=== PATIENT | male | born 1980 | race Asian ===

== ENCOUNTER 2018-01-12 19:47 | Inpatient (IN) | payer MEDICAID ==
[~2018-01-12] VITALS: Ht 167.6 cm; Wt 75.8 kg
[2018-01-12 19:51] VITALS: BP 124/77
--- NOTE | 2018-01-12 19:55 | NUR ---
TO BED # 7 AMBULATORY REPORT GIVEN TO IRVING MAIER
--- NOTE | 2018-01-12 20:03 | NUR ---
PATIENT PRESENTS TO ED WITH FEVER X 1 DAY, ABSCESS TO RIGHT CHEEK X 4 DAYS. PT STATES HE WAS SEEN FOR ABSCESS AT PCP, GIVEN BACTRIM DS AND MOTRIN FOR TX . PT ALSO STATES HE IS HIV+, HAS BEEN OFF HIV MEDICATIONS X 1 MONTH, STATING HE WAS ADDICTED AND SINCE BEEN TRYING TO BE CLEAN. COOLING MEASURES STARTED, PT CHANGED INTO HOSPITAL GOWN. ER MD DR RUIZ MADE AWARE. PT DENIES N/V/D; SKIN IS PINK/WARM/DRY; AAOX4 WITH EVEN AND STEADY GAIT; LUNGS CLEAR BL; HR EVEN AND REGULAR; PT DENIES ANY FEVER, CP, SOB, OR COUGH AT THIS TIME; PATIENT STATES PAIN OF 7/10 AT THIS TIME; VSS; PATIENT POSITIONED FOR COMFORT; HOB ELEVATED; BEDRAILS UP X2; BED DOWN. ER MD MADE AWARE OF PT STATUS.
--- NOTE | 2018-01-12 20:59 | NUR ---
Patient being evaluated by physician at bedside.
[2018-01-12] MEDS ORDERED: KETOROLAC 15 MG/ML VIAL IVP ONE (21:05)
[2018-01-12] MEDS ORDERED: NACL 0.9% 1,000 ML IV ONE (21:05)
[2018-01-12] MEDS ORDERED: VANCOMYCIN PER PHARMACY MC PRN ×2 (21:05→23:55)
[2018-01-12] MEDS ORDERED: ONDANSETRON 4 MG/2 ML VIAL IVP ONE (21:05)
[2018-01-12] MEDS ORDERED: VANCOMYCIN 1GM/DEXT 5% PREMIX 200 ML IV ONE (21:05)
[2018-01-12] MEDS ORDERED: VANCOMYCIN 1,000 MG VIAL ONE (21:17)
[2018-01-12] MEDS ORDERED: IBUPROFEN 800 MG TAB PO ONE (21:25)
[2018-01-12 21:43] LABS: BASOPHILS % (AUTO) 0.2 % (0.0-2.0); EOSINOPHILS # (AUTO) 0.2 K/uL (0-0.4); EOSINOPHILS % (AUTO) 1.4 % (0.0-4.0); HEMATOCRIT 40.3 % (36-52); HEMOGLOBIN 13.6 g/dL (12.0-18.0); LYMPHOCYTES # (AUTO) 1.1 K/uL (2.0-11.5); MEAN CORPUSCULAR HEMOGLOBIN 30 pg (27-31); MEAN CORPUSCULAR HGB CONC 34 g/dL (33-37); MONOCYTES # (AUTO) 0.9 K/uL (0.8-1.0); MONOCYTES % (AUTO) 7.5 % (1.7-9.3); NEUTROPHILS # (AUTO) 10.3 K/uL (1.8-7.7); NEUTROPHILS % (AUTO) 81.9 % (42.2-75.2); PLATELET COUNT (AUTO) 249 K/uL (140-450); RED BLOOD CELL COUNT(AUTO) 4.53 MIL/uL (4.20-6.10); RED CELL DISTRIBUTION WIDTH 13.3 % (11.6-13.7); WHITE BLOOD COUNT (AUTO) 12.6 K/uL (4.8-10.8)
[2018-01-12 21:57] LABS: ANION GAP 12.5 (8-16); CARBON DIOXIDE 24.7 mmol/L (21-32); POTASSIUM 4.2 mmol/L (3.5-5.1)
[2018-01-12 22:01] LABS: PROTHROMBIN TIME 9.1 secs (10.8-13.4)
[2018-01-12 22:03] LABS: ALBUMIN 3.1 g/dL (3.4-5.0); TOTAL BILIRUBIN 0.5 mg/dL (0.0-1.0)
[2018-01-12] MEDS ORDERED: HYDROcodone/APAP 5/325 MG 1 TAB TAB PO PRN (23:50)
[2018-01-12] MEDS ORDERED: ONDANSETRON 4 MG/2 ML VIAL IVP PRN (23:50)
[2018-01-12] MEDS ORDERED: MORPHINE SULFATE 4 MG/ML SYR IVP PRN (23:50)
[2018-01-13 00:25] VITALS: BP 113/65
--- NOTE | 2018-01-13 00:25 | NUR ---
PT ARRIVED ON UNIT WITH ER NURSE VIA WHEELCHAIR. PT IN STABLE CONDITION. IV ACCESS IN R AC 20G WITH NS AT 50ML/HR. IV IS PATENT AND INTACT. PT IS A/O X4. PT ON RA. PT HAS R BUTTOCK ABSCESS. PT HAS NO C/O PAIN AT THIS TIME. BED LOCKED, LOWEST POSITION WITH SIDE RAILS UP X2. BOARD UPDATED. ORIENTATED PT TO ROOM, BATHROOM AND CALL LIGHT USE. WILL BEGIN ADMISSION. WILL CONTINUE TO MONITOR PT.
--- NOTE | 2018-01-13 00:28 | NUR ---
Patient will be admitted to [facility]. Will go to room 105A. Belongings list completed. Report to ZOYA MAIER .
--- NOTE | 2018-01-13 01:40 | NUR ---
PICTURES TAKEN OF PT R BUTTOCK ABSCESS. PICTURES IN CHART. PT HAS NO C/O OF PAIN AT THIS TIME. WILL CONTINUE TO MONITOR.
--- NOTE | 2018-01-13 03:30 | NUR ---
PT IS SLEEPING IN BED. NO S/SX OF DISTRESS. WILL CONTINUE TO MONITOR.
[2018-01-13] MEDS: ACETAMINOPHEN 325 MG TAB PO PRN ×4 (04:37→20:22)
--- NOTE | 2018-01-13 04:37 | NUR ---
PT WOKE UP C/O PAIN. PAIN MEDICATION ADMINISTERED. PT TOLERATED WELL. WILL CONTINUE TO MONITOR.
[2018-01-13 06:50] LABS: ANION GAP 12.3 (8-16); CARBON DIOXIDE 25.7 mmol/L (21-32); CREATININE 1.1 mg/dL (0.7-1.3)
--- NOTE | 2018-01-13 07:00 | NUR ---
ENDORSED PT TO DAY SHIFT NURSE AT BEDSIDE. PT IN STABLE CONDITION.
--- NOTE | 2018-01-13 07:01 | NUR ---
RECEIVED REPORT FROM CAMP TENDER NURSE. PATIENT LYING DOWN IN BED SLEEPING, AROUSABLE BY VOICE. NO DISTRESS NOTED. REPORTS HAVING MILD PAIN ON RIGHT BUTTOCK ABSCESS THAT IS WEEPING, LIGHT GAUZE DRESSING PLACED ON ABSCESS. WILL MEDICATE WITH TYLENOL PER ORDERS. AAOX4, CALM, COOPERATIVE, SKIN COLOR APPROPRIATE TO ETHNICITY, WARM TO TOUCH. ABDOMEN SOFT, NON-DISTENDED. LUNGS CTA ON ALL LOBES. IV SITE INTACT, PATENT, ON IVF PER MD ORDERS. REVIEWED PLAN OF CARE WITH PATIENT. PATIENT VERBALIZED UNDERSTANDING. SAFETY MEASURES IN PLACE, CALL LIGHT WITHIN REACH. WILL CONTINUE TO MONITOR.
[2018-01-13 07:11] LABS: BASOPHILS % (AUTO) 0.3 % (0.0-2.0); EOSINOPHILS % (AUTO) 1.9 % (0.0-4.0); HEMOGLOBIN 13.4 g/dL (12.0-18.0); LYMPHOCYTES % (AUTO) 11.6 % (20.5-51.1); MEAN CORPUSCULAR HEMOGLOBIN 30 pg (27-31); MEAN CORPUSCULAR HGB CONC 33 g/dL (33-37); MEAN CORPUSCULAR VOLUME 89.6 fL (80-94); NEUTROPHILS # (AUTO) 8.8 K/uL (1.8-7.7); NEUTROPHILS % (AUTO) 77.2 % (42.2-75.2); PLATELET COUNT (AUTO) 253 K/uL (140-450); RED BLOOD CELL COUNT(AUTO) 4.46 MIL/uL (4.20-6.10); RED CELL DISTRIBUTION WIDTH 12.6 % (11.6-13.7); WHITE BLOOD COUNT (AUTO) 11.3 K/uL (4.8-10.8)
[2018-01-13 07:12] LABS: EOSINOPHILS # (AUTO) 0.2 K/uL (0-0.4); LYMPHOCYTES # (AUTO) 1.3 K/uL (2.0-11.5)
[2018-01-13 08:00] VITALS: BP 91/70
--- NOTE | 2018-01-13 08:57 | NUR ---
PATIENT LYING IN BED PLAYING ON HIS PHONE. NO DISTRESS NOTED. COMPLAINS OF PAIN ON RIGHT BUTTOCK ABSCESS. TYLENOL GIVEN PER PATIENT REQUEST. SAFETY MEASURES IN PLACE, CALL LIGHT WITHIN REACH. WILL CONTINUE TO MONITOR.
[2018-01-13] MEDS: NACL 0.9% 1,000 ML IV SCH (11:03)
[2018-01-13] MEDS: VANCOMYCIN 1GM/DEXT 5% PREMIX 200 ML IV SCH ×2 (11:03→21:35)
--- NOTE | 2018-01-13 11:11 | NUR ---
PATIENT LYING DOWN IN BED WATCHING TV. NO DISTRESS NOTED. PAIN WITHIN TOLERABLE. SCHEDULED ANTIBIOTIC GIVEN. WILL CONTINUE TO MONITOR.
--- NOTE | 2018-01-13 12:30 | NUR ---
PATIENT LYING IN BED SLEEPING, AROUSABLE BY VOICE. NO DISTRESS NOTED. CONDITION UNCHANGED. WILL CONTINUE TO MONITOR.
--- NOTE | 2018-01-13 14:30 | NUR ---
PATIENT COMPLAINS OF MILD PAIN ON RIGHT BUTTOCK ABSCESS, TYLENOL GIVEN PER MD ORDERS. CONDITION UNCHANGED. SAFETY MEASURES IN PLACE, CALL LIGHT WITHIN REACH. WILL CONTINUE TO MONITOR.
[2018-01-13 16:00] VITALS: BP 105/63
--- NOTE | 2018-01-13 17:00 | NUR ---
PATIENT LYING DOWN IN BED SLEEPING, AROUSABLE BY VOICE. NO DISTRESS NOTED. CONDITION UNCHANGED. WILL CONTINUE TO MONITOR.
--- NOTE | 2018-01-13 19:25 | NUR ---
GAVE REPORT TO OVERSEER KOSHER KITCHEN NURSE FOR CONTINUITY OF CARE. PATIENT IN STABLE CONDITION.
--- NOTE | 2018-01-13 19:26 | NUR ---
RECEIVED REPORT FROM DAY SHIFT NURSE ROMEL-RN. PATIENT IN BED AAOX4, CALM, COOPERATIVE, SKIN COLOR APPROPRIATE TO ETHNICITY, WARM TO TOUCH. RIGHT BUTTOCK ABSCESS THAT IS WEEPING, LIGHT GAUZE DRESSING PLACED ON ABSCESS. ABDOMEN SOFT, NON-DISTENDED. LUNGS CTA ON ALL LOBES. IV SITE RIGHT AC #20G INTACT, PATENT, WITH NS 0.9% @ 50ML/HR. REVIEWED PLAN OF CARE WITH PATIENT. PATIENT VERBALIZED UNDERSTANDING. NO S/S OF RESPIRATORY DISTRESS OR DISCOMFORT NOTED AT THIS TIME. SAFETY MEASURES IN PLACE, CALL LIGHT WITHIN REACH. WILL CONTINUE TO MONITOR.
[2018-01-13 20:00] VITALS: BP 117/70
--- NOTE | 2018-01-13 20:00 | NUR ---
VITAL SIGNS TAKEN AND TOLERATED WELL. NO S/S OF RESPIRATORY DISTRESS NOTED AT THIS TIME. PT REQUESTING TYLENOL FOR MILD PAIN. PT ALSO FEELING TIRED OF BEING IN BED AND ADVISED HIM TO WALK AROUND UNIT IF HE WOULD LIKE TO LONG HE DID NOT LEAVE THE UNIT. WILL CONTINUE TO MONITOR.
--- NOTE | 2018-01-13 20:25 | NUR ---
TYLENOL GIVEN. PT TOLERATED WELL. NO S/S OF RESPIRATORY DISTRESS. PT WALKED AROUND UNIT AND TOLERATED IT WELL. WILL CONTINUE TO MONITOR.
--- NOTE | 2018-01-13 21:40 | NUR ---
SCHEDULED MEDICATION VANCOCIN GIVEN AND TOLERATED WELL. PT C/O HUNGER. WILL CALL MD. WILL CONTINUE TO MONITOR.
--- NOTE | 2018-01-13 22:15 | NUR ---
DR. FORTE IS ON-CALL FOR DR. CURRAN. ADVISED THAT PT CAN HAVE A CLEAR LIQUID DIET UNTIL MIDNIGHT AND THEN TO RESUME NPO. PT NOW SLEEPING BUT LEFT JELLO AT BEDSIDE. WILL CONTINUE TO MONITOR.
--- NOTE | 2018-01-14 | NUR ---
VITAL SIGNS TAKEN AND TOLERATED WELL. NO S/S OF RESPIRATORY DISTRESS OR DISCOMFORT NOTED AT THIS TIME. WILL CONTINUE TO MONITOR.
[2018-01-14] MEDS: NACL 0.9% 1,000 ML IV SCH (00:07)
--- NOTE | 2018-01-14 00:10 | NUR ---
NEW BAG OF IVF WAS HUNG. PT TOLERATED WELL. NO S/S OF RESPIRATORY DISTRESS OR DISCOMFORT NOTED AT THIS TIME. WILL CONTINUE TO MONITOR.
[2018-01-14] MEDS: ACETAMINOPHEN 325 MG TAB PO PRN (00:51)
--- NOTE | 2018-01-14 00:55 | NUR ---
PT C/O PAIN AND REQUESTING TYLENOL. TYLENOL WAS GIVEN AND TOLERATED WELL. NO S/S OF RESPIRATORY DISTRESS. WILL CONTINUE TO MONITOR.
--- NOTE | 2018-01-14 01:30 | NUR ---
PT GOT OUT OF BED TO USE THE RESTROOM AND NOTICED BLOOD FALLING ON THE FLOOR. CLEANSED DRESSING WITH NS 0.9% IRRIGATION BOTTLE, APPLIED DRESSINGS AND PAPER TAPE. PROVIDED PT WITH NEW GOWN, SOCKS, AND CHUX. PT TOLERATED WELL. NO S/S OF RESPIRATORY DISTRESS OR DISCOMFORT NOTED AT THIS TIME. WILL CONTINUE TO MONITOR.
--- NOTE | 2018-01-14 03:30 | NUR ---
PT RESTING IN BED LISTENING TO CELLPHONE AUDIO. NO S/S OF RESPIRATORY DISTRESS OR DISCOMFORT NOTED AT THIS TIME. WILL CONTINUE TO MONITOR.
--- NOTE | 2018-01-14 04:00 | NUR ---
VITAL SIGNS TAKEN AND TOLERATED WELL. NO S/S OF RESPIRATORY DISTRESS OR DISCOMFORT NOTED AT THIS TIME. WILL CONTINUE TO MONITOR. Addendum: 01/14/18 at 0437 by Desi Ward RN WRONG PT. PLEASE DISREGARD
--- NOTE | 2018-01-14 06:00 | NUR ---
PT SLEEPING AT THIS TIME. NO S/S OF RESPIRATORY DISTRESS OR DISCOMFORT NOTED AT THIS TIME. WILL CONTINUE TO MONITOR.
--- NOTE | 2018-01-14 07:13 | NUR ---
RECEIVED REPORT FROM NIGHTSHIFT NURSE AT BEDSIDE. PATIENT IS LYING IN LEFT LATERAL POSITION. PATIENT IS AROUSABLE TO NAME. PATIENT IS ALERT AND ORIENTED X4. NO DISTRESS NOTED. PAIN 5/10 NOTED ON RIGHT BUTTOCK AREA. ABSCESS NOTED ON RIGHT BUTTOCKS AREA AND HAS SOME SATURATION OF BLOOD. PATIENT HAS AN IV NOTED ON HIS RIGHT AC 20 G RUNNING NORMAL SALINE AT 50 ML/HR. WILL PLAN TO MEDICATE PATIENT. UPDATED BOARD IN PATIENT'S ROOM. CALL LIGHT WITHIN REACH OF PATIENT. WILL CONTINUE TO MONITOR.
--- NOTE | 2018-01-14 07:13 | NUR ---
ENDORSED PT CARE TO DAY SHIFT NURSE LENNOX FOR CONTINUITY OF CARE.
[2018-01-14 08:00] VITALS: BP 102/51
--- NOTE | 2018-01-14 08:10 | NUR ---
CHANGED PATIENT'S DRESSING LOCATED ON PATIENT'S RIGHT BUTTOCK. PATIENT'S DRESSING IS SATURATED WITH BLOOD. CLEANSED PATIENT'S WOUND WITH NORMAL SALINE AND PAT DRY. COVERED WITH 4X4 DRESSING AND USED TAPE TO SECURE IT. PATIENT TOLERATED WELL. WILL CONTINUE TO MONITOR PATIENT.
--- NOTE | 2018-01-14 10:00 | NUR ---
PATIENT RESTING AT THIS TIME. NO DISTRESS NOTED. WILL CONTINUE TO MONITOR PATIENT.
--- NOTE | 2018-01-14 10:05 | NUR ---
PATIENT HAS BEEN SCREENED AND CATEGORIZED MODERATE NUTRITION RISK. PATIENT WILL BE SEEN WITHIN 3-5 DAYS OF ADMISSION. 01/15/18 01/17/[address]
[2018-01-14 10:57] LABS: HEMATOCRIT 39.4 % (36-52); HEMOGLOBIN 13.4 g/dL (12.0-18.0); MEAN CORPUSCULAR HEMOGLOBIN 30 pg (27-31); MEAN CORPUSCULAR HGB CONC 34 g/dL (33-37); MEAN CORPUSCULAR VOLUME 88.6 fL (80-94); NEUTROPHILS % (AUTO) 70.2 % (42.2-75.2); PLATELET COUNT (AUTO) 297 K/uL (140-450); RED BLOOD CELL COUNT(AUTO) 4.44 MIL/uL (4.20-6.10); RED CELL DISTRIBUTION WIDTH 12.1 % (11.6-13.7); WHITE BLOOD COUNT (AUTO) 7.6 K/uL (4.8-10.8)
[2018-01-14 10:58] LABS: BASOPHILS # (AUTO) 0.1 K/uL (0.00-0.22); BASOPHILS % (AUTO) 1.5 % (0.0-2.0); EOSINOPHILS # (AUTO) 0.1 K/uL (0-0.4); EOSINOPHILS % (AUTO) 1.3 % (0.0-4.0); LYMPHOCYTES # (AUTO) 1.3 K/uL (2.0-11.5); LYMPHOCYTES % (AUTO) 17.4 % (20.5-51.1); MONOCYTES # (AUTO) 0.7 K/uL (0.8-1.0); MONOCYTES % (AUTO) 9.6 % (1.7-9.3); NEUTROPHILS # (AUTO) 5.4 K/uL (1.8-7.7)
[2018-01-14 11:06] LABS: ANION GAP 10.6 (8-16); CREATININE 0.6 mg/dL (0.7-1.3); POTASSIUM 3.6 mmol/L (3.5-5.1)
[2018-01-14] MEDS ORDERED: VANCOMYCIN 1GM/DEXT 5% PREMIX 200 ML IV SCH (13:00)
--- NOTE | 2018-01-14 13:17 | NUR ---
PATIENT LEFT FOR O.R. ACCOMPANIED BY OPERATING ROOM NURSE. DR. BROWN WILL SEE PATIENT IN THE UNIT AND EXPLAIN SURGERY. NO CONSENT HAS BEEN OBTAINED. O.R. NURSE SIMON SAID THAT CONSENT WILL BE TAKEN CARE OF IN OPERATING ROOM. PATIENT LEFT THE UNIT IN STABLE CONDITION.
[2018-01-14] MEDS ORDERED: PROPOFOL 200 MG/20 ML VIAL IV ONE (13:40)
[2018-01-14] MEDS ORDERED: SEVOFLURANE 250 ML BTL INH ONE (13:40)
[2018-01-14] MEDS ORDERED: DEXAMETHASONE 4 MG/ML VIAL ONE (13:40)
[2018-01-14] MEDS ORDERED: ONDANSETRON 4 MG/2 ML VIAL ONE (13:40)
[2018-01-14] MEDS ORDERED: MIDAZOLAM 2 MG/2 ML VIAL ONE (13:45)
[2018-01-14] MEDS ORDERED: fentaNYL 0.05 MG/ML VIAL ONE (13:45)
[2018-01-14] MEDS ORDERED: MEPERIDINE 50 MG/ML SYR ONE (13:46)
[2018-01-14] MEDS ORDERED: BUPIVACAINE-MPF 0.25% 30 ML VIAL INJ ONE (13:51)
[2018-01-14] MEDS ORDERED: HYDROmorphone 1 MG/ML AMP IVP PRN ×2 (14:10→14:15)
[2018-01-14] MEDS ORDERED: MORPHINE SULFATE 4 MG/ML SYR IV PRN (14:10)
[2018-01-14] MEDS ORDERED: ONDANSETRON 4 MG/2 ML VIAL IV PRN (14:10)
[2018-01-14] MEDS ORDERED: HYDROcodone/APAP 5/325 MG 1 TAB TAB PO PRN (14:10)
[2018-01-14] MEDS ORDERED: MORPHINE SULFATE 2 MG/ML SYR IVP PRN (14:10)
[2018-01-14] MEDS ORDERED: LACTATED RINGERS 1,000 ML IV SCH (14:13)
[2018-01-14] MEDS ORDERED: ONDANSETRON 4 MG/2 ML VIAL IVP PRN (14:15)
[2018-01-14] MEDS ORDERED: MEPERIDINE 25 MG/ML SYR IVP PRN (14:15)
[2018-01-14] MEDS ORDERED: diphenhydrAMINE 50 MG/ML VIAL IVP PRN (14:15)
[2018-01-14] MEDS ORDERED: ACET-5629 PO (14:52)
[2018-01-14] MEDS ORDERED: SULF-59 PO (14:53)
[2018-01-14] MEDS ORDERED: AMOX-999 PO (14:53)
--- NOTE | 2018-01-14 15:20 | NUR ---
PATIENT RETURNED TO THE UNIT. PATIENT IN STABLE CONDITION. WILL CONTINUE TO MONITOR
--- NOTE | 2018-01-14 15:30 | NUR ---
PATIENT TOLERATED ICE CHIPS. WILL REQUEST TRAY FOR FNS.
[2018-01-14 16:00] VITALS: BP 96/57
--- NOTE | 2018-01-14 17:55 | NUR ---
PATIENT SIGNED ALL DISCHARGE INSTRUCTIONS AND IS AWARE OF ALL PRESCRIPTIONS. REMOVED PATIENT'S IV LINE WITH IV STILL INTACT. REMOVED IDENTIFICATION BANDS. PATIENT UNDERSTANDS FOLLOW UP INSTRUCTIONS WITH DR. BROWN. PATIENT GATHERED ALL BELONGINGS. PATIENT LEFT IN STABLE CONDITION.
--- NOTE | 2018-01-15 07:31 | NUR ---
FAXED ER REPORT, H&P, OPERATIVE REPORT AND ORDER FOR HOME HEALTH TO [facility] [phone] [facility] [phone]
--- NOTE | 2018-01-15 10:19 | NUR ---
SPOKE WITH OJSE FROM [facility] AND SHE WILL BE GETTING THE HOME HEALTH FOR THIS PATIENT..
--- NOTE | 2018-02-01 08:12 | NUR ---
FAXED DISCHARGE SUMMARY TO [facility] [phone]
== END 2018-01-14 19:55 | disposition home health service (06) | DRG 892 ==
LOC: MED 19:47 → MTU 23:49
PROVIDERS: ADMIT Hospitalist; ATTEND Hospitalist
PROC: 0Y900ZZ Drainage of Right Buttock, Open Approach (ICD-10-PCS; 2018-01-14)
PROC: 0JB90ZZ Excision of Buttock Subcutaneous Tissue and Fascia, Open Approach (ICD-10-PCS; principal; 2018-01-14 13:00)
DX: A41.9 Sepsis, unspecified organism (principal); B20 Human immunodeficiency virus [HIV] disease; E87.1 Hypo-osmolality and hyponatremia; L02.31 Cutaneous abscess of buttock; K61.0 Anal abscess; F32.9 Major depressive disorder, single episode, unspecified; F14.10 Cocaine abuse, uncomplicated; D72.829 Elevated white blood cell count, unspecified; F19.10 Other psychoactive substance abuse, uncomplicated; F15.10 Other stimulant abuse, uncomplicated; Z91.14 Patient's other noncompliance with medication regimen
CPT/HCPCS: 36415; 71045; 80048; 80053; 80202; 83605; 85025; 85610; 85730; 87040; 87070; 87075; 87081; 87186; 87205; 88304; 96365; 96366; 96375; 99285; J1100; J1885; J2175; J2250; J2405; J2704; J3010; J3370; J3490; J7030; Q0092

== ENCOUNTER 2018-06-03 18:20 | Emergency (ER) | payer MEDICAID ==
[~2018-06-03] VITALS: Ht 167.6 cm; Wt 72.6 kg
[~2018-06-03 18:20] MED LIST: ACET-5629 PO; AMOX-999 PO; SULF-59 PO
--- NOTE | 2018-06-03 18:25 | NUR ---
PT AMBULATED TO ER BED 05
[2018-06-03 18:26] VITALS: BP 125/60
--- NOTE | 2018-06-03 18:35 | NUR ---
PATIENT PRESENTS TO ED WITH RECHECK FOR RIGHT THIGH ABCESS. DENIES N/V/D; SKIN IS PINK/WARM/DRY; AAOX4 WITH EVEN AND STEADY GAIT; LUNGS CLEAR BL; HR EVEN AND REGULAR; PT DENIES ANY FEVER, CP, SOB, OR COUGH AT THIS TIME; PATIENT STATES PAIN OF 0/10 AT THIS TIME; VSS; PATIENT POSITIONED FOR COMFORT; HOB ELEVATED; BEDRAILS UP X2; BED DOWN. ER MD MADE AWARE OF PT STATUS.
--- NOTE | 2018-06-03 18:40 | NUR ---
Patient being evaluated by DR WAITE at bedside.
[2018-06-03 18:51] VITALS: BP 125/60
--- NOTE | 2018-06-03 18:51 | NUR ---
DCPatient discharged with v/s stable. Written and verbal after care instructions given and explained. Patient verbalized understanding. Ambulatory with steady gait. All questions addressed prior to discharge. Advised to follow up with PMD.
== END 2018-06-03 18:51 | disposition home or self-care (01) ==
LOC: MED 18:20
DX: Z48.01 Encounter for change or removal of surgical wound dressing (principal); Z79.899 Other long term (current) drug therapy
CPT/HCPCS: 99281

== ENCOUNTER 2021-04-28 12:52 | Emergency (ER) | payer MEDICAID ==
[~2021-04-28] VITALS: Ht 167.6 cm; Wt 68.5 kg
[2021-04-28 13:05] VITALS: BP 106/65
--- NOTE | 2021-04-28 13:09 | NUR ---
PT AMB TO BED 1.
--- NOTE | 2021-04-28 13:25 | NUR ---
40 Y/O MALE C/O BLOODY STOOL X1DAY WITH LLQ ABD PAIN 8/10 DEDSCRIBES ACHING X 4DAYS. PT STATES +N AND DIARRHEA/-V, DENIES FEVER/CHILLS. ABDOMEN IS SOFT, FLAT, NON-TENDER TO PALPATION WITH BOWEL SOUNDS PRESENT X4. LAST BM 04/28/21. PMH: HIV NKA
--- NOTE | 2021-04-28 13:44 | NUR ---
DR. FALK AT PT BEDSIDE FOR FURTHER EVALUATION.
--- NOTE | 2021-04-28 13:52 | NUR ---
INDUSTRIAL TRUCK DRIVER AT PT BEDSIDE.
[2021-04-28 14:27] LABS: EOSINOPHILS % (AUTO) 0.1 % (0.0-4.0); HEMATOCRIT 45.3 % (36-52); HEMOGLOBIN 15.7 g/dL (12.0-18.0); LYMPHOCYTES # (AUTO) 0.8 K/uL (2.0-11.5); LYMPHOCYTES % (AUTO) 12.6 % (20.5-51.1); MEAN CORPUSCULAR HEMOGLOBIN 32 pg (27-31); MEAN CORPUSCULAR HGB CONC 35 g/dL (33-37); MEAN CORPUSCULAR VOLUME 91.3 fL (80-94); MONOCYTES # (AUTO) 1.4 K/uL (0.8-1.0); MONOCYTES % (AUTO) 21.4 % (1.7-9.3); NEUTROPHILS # (AUTO) 4.3 K/uL (1.8-7.7); NEUTROPHILS % (AUTO) 65.9 % (42.2-75.2); PLATELET COUNT (AUTO) 263 K/uL (140-450); RED BLOOD CELL COUNT(AUTO) 4.97 MIL/uL (4.20-6.10); RED CELL DISTRIBUTION WIDTH 13.6 % (11.6-13.7); WHITE BLOOD COUNT (AUTO) 6.5 K/uL (4.8-10.8)
--- NOTE | 2021-04-28 14:34 | NUR ---
PT TAKEN TO CT VIA RQUEENIE.
[2021-04-28 14:40] LABS: PROTHROMBIN TIME 9.1 secs (10.8-13.4)
--- NOTE | 2021-04-28 14:40 | NUR ---
PT TAKEN TO ER BED 1 VIA SKYLAR.
[2021-04-28 14:43] LABS: ALBUMIN 2.7 g/dL (3.4-5.0); ANION GAP 17.3 (8-16); CARBON DIOXIDE 21.8 mmol/L (21-32); POTASSIUM 3.1 mmol/L (3.5-5.1); TOTAL BILIRUBIN 1.3 mg/dL (0.0-1.0)
[2021-04-28 14:48] LABS: CREATININE 4.8 mg/dL (0.6-1.3)
[2021-04-28] MEDS ORDERED: KCL 20 MEQ/WATER INJ PREMIX 100 ML IV ONE (15:20)
[2021-04-28] MEDS ORDERED: NACL 0.9% 2,000 ML IV ONE (15:20)
[2021-04-28] MEDS ORDERED: MORPHINE SULFATE 2 MG/ML SYR IVP ONE (15:20)
--- NOTE | 2021-04-28 15:30 | NUR ---
PT RESTING IN BED, HOB LOWERED FOR COMFORT, VSS, WILL CONTINUE TO MONITOR.
[2021-04-28] MEDS ORDERED: LEVOFLOXACIN 750 MG/D5W PREMIX 150 ML IV ONE (15:55)
--- NOTE | 2021-04-28 16:10 | NUR ---
US TECH AT PT BEDSIDE.
[2021-04-28] MEDS ORDERED: EMTR1TAB12 PO (17:25)
--- NOTE | 2021-04-28 17:35 | NUR ---
PT SLEEPING, VISIBLE EQUAL RISE AND FALL OF CHEST, VSS, WILL CONTINUE TO MONITOR.
[2021-04-28] MEDS ORDERED: MORPHINE SULFATE 2 MG/ML SYR IVP PRN (18:10)
[2021-04-28] MEDS ORDERED: MAGNESIUM OXIDE 400 MG TAB PO PRN (18:10)
[2021-04-28] MEDS ORDERED: SODIUM PHOS / POTASSIUM PHOS 1 PKT PDR PO PRN (18:10)
[2021-04-28] MEDS ORDERED: DOCUSATE SODIUM 100 MG GELCAP PO PRN (18:10)
[2021-04-28] MEDS ORDERED: POTASSIUM CHLORIDE 10 MEQ TABER PO PRN (18:10)
[2021-04-28] MEDS ORDERED: ONDANSETRON 4 MG/2 ML VIAL IM/IVP PRN (18:10)
[2021-04-28] MEDS ORDERED: NACL 0.9% 1,000 ML IV SCH (18:10)
[2021-04-28] MEDS ORDERED: ACETAMINOPHEN 325 MG TAB PO PRN (18:10)
[2021-04-28] MEDS ORDERED: HYDROcodone/APAP 5/325 MG 1 TAB TAB PO PRN (18:10)
[2021-04-28 18:35] LABS: MAGNESIUM 1.9 mg/dL (1.8-2.4); PHOSPHORUS 4.7 mg/dL (2.5-4.9)
[2021-04-28] MEDS ORDERED: RENAL DOSING PER PHARMACY MC PRN (18:40)
--- NOTE | 2021-04-28 19:15 | NUR ---
PT RESTING, VSS, WILL CONTINUE TO MONITOR.
--- NOTE | 2021-04-28 19:29 | NUR ---
GAVE REPORT TO DARRION TARIQ. TRANSFER OF CARE AT THIS TIME.
--- NOTE | 2021-04-28 20:21 | NUR ---
PT REQUESTS TO LEAVE AMA. RISKS EXPLAINED. PT STATES "I JUST WANT TO GO". DR. CARLIN NOTIFIED
[2021-04-28 20:50] VITALS: BP 117/72
--- NOTE | 2021-04-28 20:50 | NUR ---
Patient does not wish to proceed with medical care recommended by DR CARLIN. Patient given information related to possible complications, up to and including , which could occur as a result of leaving hospital at this time. Patient verbalizes understanding of risks involved leaving against medical advice. Patient has signed AMA form.
[2021-04-29] MEDS ORDERED: EMTRICITABINE/TENOFOVIR 200-300MG 1 TAB PO SCH (09:00)
[2021-04-29] MEDS ORDERED: PANTOPRAZOLE 40 MG TABEC PO SCH (09:00)
[2021-04-29] MEDS ORDERED: metroNIDAZOLE 500 MG TAB PO SCH (09:00)
[2021-04-29] MEDS ORDERED: LEVOFLOXACIN 250 MG/D5 PREMIX 100 ML IV SCH (16:00)
--- NOTE | 2021-05-01 19:19 | NUR ---
LATE ENTRY- POTASSIUM CHLORIDE IVBP DISCONTINUED AT 1700.
== END 2021-04-28 20:50 | disposition left against medical advice (07) ==
LOC: MED 12:52 → MTU 18:12 → UNDOADMIN 18:12 → MTU 18:23 → MED 20:50
DX: K92.2 Gastrointestinal hemorrhage, unspecified (principal); E87.6 Hypokalemia; N17.9 Acute kidney failure, unspecified; K52.9 Noninfective gastroenteritis and colitis, unspecified
CPT/HCPCS: 36415; 74176; 76705; 80053; 83605; 83735; 84100; 85025; 85610; 85730; 86886; 86900; 86901; 87040; 96365; 96366; 96368; 96375; 99285; J1956; J2270; J3480; J7030; Q0092